=== PATIENT | female | born 1940 | race Caucasian/White ===

== ENCOUNTER 2024-07-29 16:28 | Emergency (ER) | payer OTHER, SELFPAY ==
[2024-07-29] VITALS (25 sets, daily range): BP systolic 95–138; BP diastolic 36–92; BMI 27.7
--- NOTE | 2024-07-29 16:36 | ED.PDOC.TRB ---
ED Provider Triage
-
Patient seen by provider in Triage?: Seen in Triage
Attestation: A medical screening examination has been initiated by a qualified medical provider. Based on the assessment performed at this time, it has been determined that an emergent medical condition may exist and the patient has been informed
that further medical evaluation and possible additional diagnostic testing may be needed.
HPI: 84-year-old female with history of paroxysmal atrial fibrillation on Eliquis presents for evaluation of acute onset of chest pain associated with vomiting that began 1 hour ago. States the symptoms feel comparable but more severe than her past
bouts of A-fib. Has required cardioversion in the past. Has been compliant with her Eliquis. Denies any radiation of the pain to the back but does note radiation to the jaw.
GENERAL: Alert , in no apparent distress
EYE: No visual abnormalities.
NECK: Trachea midline
ENT: No visible abnormalities.
LUNGS: No acute respiratory distress
NEUROLOGICAL: Alert and oriented
SKIN: Skin intact. No visible changes.
MUSCULOSKELETAL: Moving extremities normally
PSYCH: Normal and appropriate interaction.
Assessment: Pulses are irregular by palpation, suggest acute onset A-fib, check EKG and basic labs, if not in A-fib will add troponin due to radicular nature of pain
This is a medical evaluation conducted in person to initiate diagnostic evaluation and provide initial therapeutics. Please see further documentation by the treating clinician.
[2024-07-29 17:11] LABS: % Basophils 0.2 % (0-2); % Eosinophils 1.7 % (0-6); % Immature Granulocytes 0.3 % (0-0.5); % Monocytes 7.9 % (1.7-9.3); % Neutrophils 70.9 % (42.2-75.2); Absolute Eosinophils 0.2 10^3/uL (0-0.7); Absolute Lymphocytes 2.4 10^3/uL (1.2-3.4); Absolute Neutrophils 8.9 10^3/uL (1.4-6.5); Hematocrit 38.8 % (37.0-47.0); Mean Corp Hgb Conc. 33.5 g/dL (33.0-37.0); Mean Corpuscular Hgb 32.2 pg (27.0-31.0); Mean Platelet Volume 10.6 fL (7.4-10.4); Nucleated Red Blood Cells % 0 %; Platelet Count 249 10^3/uL (130-400); Red Blood Cell Count 4.04 10^6/uL (4.20-5.40); Red Cell Dist. Width 12.9 % (11.5-14.5); White Blood Cell Count 12.5 10^3/uL (4.8-10.8)
[2024-07-29 17:31] LABS: Troponin I < 0.012 ng/ml
[2024-07-29 17:38] LABS: ALT (SGPT) 21 U/L (0-35); AST (SGOT) 27 U/L (14-36); Alkaline Phosphatase 79 U/L (38-126); Blood Urea Nitrogen 20 mg/dl (7-17); Calcium 9.8 mg/dl (8.4-10.2); Carbon Dioxide 25 mmol/L (22-30); Chloride 104 mmol/L (98-107); Estimated Creatinine Clearance 48 ml/min; Glucose 120 mg/dl (70-99); Magnesium 1.7 mg/dl (1.6-2.3); Potassium 4.6 mmol/L (3.5-5.1); Sodium 142 mmol/L (135-145); Total Bilirubin 0.7 mg/dl (0.2-1.3); Total Protein 6.6 g/dl (6.3-8.2); eGFR > 60.00
--- NOTE | 2024-07-29 17:58 | ED.GENMED ---
History of Present Illness
General
Chief Complaint: Chest Pain
Source: patient
Exam Limitations: none
Time Seen by Provider: 07/29/24 17:12
Nursing documentation reviewed up to this point in time: agreed with
History of Present Illness
History of Present Illness:
84-year-old female presents emergency room complaining of chest pain that began at 3:30 PM today. Feels similar to when she went into atrial fibrillation.
Past History
Past History
ED Past Medical History: HTN and Hypercholesterolemia
ED Past Surgical History: None
Social History
Tobacco: Non-smoker
Personal:
Living: with family
Review of Systems
Review of Systems
Allergies reviewed?: Yes
All Other Systems: Not applicable
Constitutional: Reports no symptoms
EENT: Reports no symptoms
Respiratory: Reports no symptoms
Cardiac: Reports chest pain and palpitations
ABD/GI: Reports no symptoms
: Reports no symptoms
Musculoskeletal: Reports back pain
Skin: Reports no symptoms
Neurological: Reports no symptoms
Endocrine: Reports no symptoms
Hematologic/Lymphatic: Reports no symptoms
Psychiatric: Reports no symptoms
Phy Exam
Physical Exam
Physical Exam:
Physical Exam
General: no apparent distress, not acutely ill
Neck: supple. no meningeal signs. normal posterior pharynx
Heart: s1/s2 tachycardia, irregular rhythm, no murmur. equal radial
pulses.
HEENT: Pupils equal round reactive to light, EOMI
Lungs: no acute respiratory distress. clear bilaterally, chest wall tenderness
Abdomen: normal bowel sounds. not tender. no CVAT
Neuro: alert and oriented. no focal neurological deficits cranial nerves II through XII intact
Skin: no rash
Psychiatric: well kept. interactive and cooperative
Extremities: no edema. no calf tenderness. negative homans. good distal pulses
Scores
Heart Score for Chest Pain Patients
STEMI patient?: No
History: Slightly or Non-Suspicious
ECG: Nonspecific Repolarization
Age: >/= 65 years
Risk Factors: 1 or 2 Risk Factors
Troponin: </= Normal Limit
Heart Score for Chest Pain Patients: 4
Heart Score Risk: 20.3% MACE over next 6 weeks
Course
Orders/Labs/Results
Orders:
Orders
07/29/24 16:32
EKG [Electrocardiogram (*1)] Urgent
Reason for Study: Chest Pain
EKG- Treatment ONCE
07/29/24 17:00
Complete Blood Count/With Diff Urgent
Comprehensive Metabolic Panel Urgent
Magnesium Urgent
Troponin I Urgent
07/29/24 17:56
CT Chest/abd/pelvis Angio W/wo Urgent
Comment:
Reason For Exam: chest pain radiating to back and jaw
Fentanyl Citrate/Pf [Sublimaze] 50 mcg IV NOW STA
07/29/24 19:27
Diltiazem 125 mg/125 ml Nss [Cardizem] 125 mg in 125 ml IV NOW
Initial dose in mg/hr, then titrate:: 5
Titrate to keep:: Heart rate 80-100 bpm
Titrate by mg/hr:: 5 mg/hr
Frequency of titrations (minutes):: 15
Maximum dose in mg/hr:: 15
Diltiazem HCl [Cardizem] 5 mg IV NOW STA
07/29/24 20:04
0.9% Sodium Chloride 1000 ml [Nss] 1,000 ml IV BOLUS
07/29/24 20:29
Propofol [Diprivan] 20 ml .ROUTE .STK-MED
07/29/24 21:08
EKG [Electrocardiogram (*1)] Urgent
Reason for Study: Tachycardia
EKG- Treatment ONCE
07/29/24 21:22
Troponin I Urgent
Abnormal Lab Results
07/29/24
17:00
WBC 12.5 H 10^3/uL
(4.8-10.8)
RBC 4.04 L 10^6/uL
(4.20-5.40)
MCH 32.2 H pg
(27.0-31.0)
MPV 10.6 H fL
(7.4-10.4)
Absolute Neuts (auto) 8.9 H 10^3/uL
(1.4-6.5)
Absolute Monos (auto) 1.0 H 10^3/uL
(0.1-0.6)
Lymphocytes % 19.0 L %
(20.5-51.1)
BUN 20 H mg/dl
(7-17)
Glucose 120 H mg/dl
(70-99)
07/29/24 17:00
07/29/24 17:00
Vital Signs
Initial and Last Documented VS:
Initial Vital Signs
Temp Pulse Resp BP Pulse Ox
98.0 F 56 18 112/92 94
07/29/24 16:33 07/29/24 16:33 07/29/24 16:33 07/29/24 16:33 07/29/24 16:33
Last Documented Vital Signs
Temp Pulse Resp BP Pulse Ox
98.2 F 66 21 98/49 96
07/29/24 21:30 07/29/24 21:40 07/29/24 21:40 07/29/24 21:40 07/29/24 21:40
Procedures
Moderate Sedation
ASA Risk Score: Class II
Chart and allergies reviewed: Yes
Consent for anesthesia obtained: Yes
Time out completed (validating right patient & procedure): Yes
Moderate Sedation Start Time(when first medication is given): 21:00
History of difficult intubation: No
Airway free of obstruction: Yes
Patient has a gag reflex: Yes
Patient is able to open mouth: Yes
Patient has no dentures: Yes
Patient has no loose teeth: Yes
Medication administered by Provider during Moderate Sedation: IV Propofol (mg)
Total dose administered: 40
Time drug administered: 21:00
Moderate Sedation Procedure End Time: 21:10
Cardioversion
Indication:: Afib
Performed by:: Dennis
Synchronized?: Yes
Energy Used: 200 joules
Number of attempts: 1
Successful?: Yes
ASA Risk Score: Class II
Any reaction or bad outcome to prior sedation/anesthesia?: No history of a reaction
Sedation level to be attained: moderate
Chart and allergies reviewed: Yes
Patient reassessed prior to sedation: Yes
Time out completed at (validating right patient & procedure): 20:58
History of difficult intubation: No
Airway free of obstruction: Yes
Patient has a gag reflex: Yes
Patient is able to open mouth: Yes
Patient has no dentures: Yes
Patient has no loose teeth: Yes
Medication administered by Provider during Moderate Sedation: IV Propofol (mg)
Total dose administered: 40
Time drug administered: 21:00
Start Time: 21:00
Stop Time: 21:10
MDM/Problems Addressed
Differential Diagnosis Includes:
ACS, aortic dissection, rapid A-fib
MDM/Problems Addressed:
84-year-old female with rapid atrial fibrillation, successful cardioversion. No signs of aortic dissection. Troponin negative.
Chronic conditions affecting care: Arrhythmia
Acute Exacerbation and/or Progression of Chronic Illness: Arrhythmia
*Radiology
Radiology exam reviewed: radiology read reviewed (CT chest abdomen pelvis no signs of aortic dissection)
*Pulse Oximetry
Patient hypoxic: no
*EKG
Interpreted by ED Provider?: Yes
EKG Intrepretation Date: 07/29/24
EKG Intrepretation Time: 16:39
Interpretation: abnormal
Comparison EKG: changes noted
Heart Rate: 98
Rate: normal
Rhythm: a-fib
[place]: normal axis
Interval: normal interval
QRS Pattern: normal QRS
Ischemia: no ischemia
*Special Librarian Interpretation
Rate: normal
Interpretation: abnormal
Heart Rate: 155
Rhythm: a-fib
*Critical Care Note
Total Time (30-74mins, 75-104mins- exclusive of procedures): 30
comment:
Critical care statement: A total of 30 minutes of critical care time was provided for this patient. This includes management of unstable vital signs, evaluation of the patient at bedside, reviewing the patient's pertinent medical records, discussion
with consultants, review of old EKGs and review of pertinent medical records. This time with separate from time utilized to perform the aforementioned documented procedures
Patient Management
Social determinants of health affecting care: Living situation
Discussion with other providers: Operation Shift Supervisor (Discussed with Dr. Brush, who recommends cardioversion)
ED Attending Note
-
Portions of this chart may have been created with voice recognition software.� Occasional wrong word or��sound alike� substitutions may have occurred due to the inherent limitations of voice recognition software.
Discharge Plan
Departure
Patient Disposition: Home (Routine Discharge)
Date of Disposition: 07/29/24
Time of Disposition: 22:17
Patient with high blood pressure during this ER visit?: Yes
Condition: Good
Discharge Problem:
Atrial fibrillation with rapid ventricular response, Chest pain
Instructions: MODERATE SEDATION ADULT, Chest Pain CBC Follow Up, BLOOD PRESSURE
Prescriptions:
No Action
lisinopril 5 MG tablet
5 mg PO DAILY
atorvastatin 20 mg tablet
20 mg PO DAILY
metoprolol tartrate 25 mg tablet
25 mg PO BID
Eliquis 5 mg tablet
5 mg PO BID
Referrals:
Lobito Chowdhury MD [Family Provider] -
Interventions
Interventions:
*Risk Screen - Suicide Last Done: 07/29/24 16:51
*General Assessment Last Done: 07/29/24 16:35
*Neglect/Abuse Screening Last Done: 07/29/24 16:51
ED- Fall Risk Assessment Last Done: 07/29/24 16:51
*ED COVID-19 Vaccine History Last Done: 07/29/24 16:35
ED- Cardiac Assessment Last Done: 07/29/24 16:51
Discharge Date and Time
Print Language: SUDANESE
[2024-07-29] MEDS: SUBLIMAZE 50 MCG IV (18:06)
[2024-07-29] MEDS: CARDIZEM 5 MG IV (19:36)
[2024-07-29] MEDS: CARDIZEM 125 IV (19:37)
[2024-07-29] MEDS: NSS 1000 IV (20:09)
[2024-07-29 21:59] LABS: Troponin I < 0.012 ng/ml
== END 2024-07-29 22:38 | disposition home or self-care (01) ==
LOC: EMR 16:28
PROVIDERS: Physician Assistant; EMERGENCY PHYSICIAN Emergency Medicine; FAMILY PHYSICIAN Internal Medicine
DX: I48.0 Paroxysmal atrial fibrillation (principal); R11.10 Vomiting, unspecified; R07.89 Other chest pain; I10 Essential (primary) hypertension; E78.00 Pure hypercholesterolemia, unspecified; Z79.01 Long term (current) use of anticoagulants; Z88.1 Allergy status to other antibiotic agents
CPT/HCPCS: 99291; 92960; 96365; 96375; 96361; 99152; 71275; 74174; 80053; 83735; 84484; 85025; 93005; Q9967

== ENCOUNTER → 2024-08-06 11:20 | Outpatient (REF) | payer OTHER, SELFPAY | LOC: DHCBC/DCA 11:20 | PROVIDERS: ATTENDING PHYSICIAN Internal Medicine Cardiovascular Disease; FAMILY PHYSICIAN Internal Medicine | DX: I48.0 Paroxysmal atrial fibrillation (principal); R07.2 Precordial pain | CPT/HCPCS: 78452; 93017; A9500; J2785 ==

== ENCOUNTER → 2024-08-07 07:44 | Outpatient (REF) | payer OTHER, SELFPAY | LOC: HWRCS 07:44 | PROVIDERS: ATTENDING PHYSICIAN Internal Medicine Cardiovascular Disease; FAMILY PHYSICIAN Internal Medicine | DX: I48.0 Paroxysmal atrial fibrillation (principal); R07.2 Precordial pain | CPT/HCPCS: 93306 ==

== ENCOUNTER → 2024-11-27 10:56 | Outpatient (REF) | payer OTHER, SELFPAY | LOC: WDC 10:56 | PROVIDERS: ATTENDING PHYSICIAN Internal Medicine | DX: Z12.31 Encounter for screening mammogram for malignant neoplasm of breast (principal) | CPT/HCPCS: 77063; 77067 ==

== ENCOUNTER → 2025-09-30 12:44 | Outpatient (REF) | payer OTHER, SELFPAY | LOC: RCS 12:44 | PROVIDERS: ATTENDING PHYSICIAN Internal Medicine Cardiovascular Disease; FAMILY PHYSICIAN Internal Medicine | DX: I34.0 Nonrheumatic mitral (valve) insufficiency (principal); I35.1 Nonrheumatic aortic (valve) insufficiency | CPT/HCPCS: 93306 ==